=== PATIENT | female | born 1945 | race Caucasian/White ===

== ENCOUNTER 2020-08-02 15:11 | Outpatient (CLI) | payer MEDICARE, OTHER, SELFPAY ==
--- NOTE | ~2020-08-02 | MM_ITS ---
EXAMINATION: MM screening kari BI w silas HISTORY: Screening mammogram TECHNIQUE: Craniocaudal and mediolateral oblique 3-D tomosynthesis images were obtained and synthetic 2-D images were generated. CAD analysis was submitted and interpreted. COMPARISON: 07/28/2019, 07/26/2018 and 07/23/2017 bilateral digital screening mammogram examinations BREAST PARENCHYMAL COMPOSITION: The breasts are heterogeneously dense, which may obscure small masses . FINDINGS: Stable fibroglandular asymmetry. Numerous bilateral benign calcifications are again noted. There is no evidence of suspicious mass, calcification, or architectural distortion to suggest malign ancelmo in either breast. There has been no suspicious interval change. IMPRESSION: 1. No mammographic evidence of malignancy. 2. Recommend routine screening mammography in one year. BI-RADS Category 2: Benign finding(s). Reviewed, dictated and finalized at location A.
== END 2020-08-02 15:12 | disposition home or self-care (01) ==
LOC: ANHIMG 15:16
PROVIDERS: PCP Internal Medicine; Visit Provider Nurse Practitioner
DX: Z12.31 Encounter for screening mammogram for malignant neoplasm of breast (principal)
CPT/HCPCS: 77063; 77067

== ENCOUNTER 2021-08-05 14:35 | Outpatient (CLI) | payer MEDICARE, OTHER, SELFPAY ==
--- NOTE | ~2021-08-05 | MM_ITS ---
EXAMINATION: MM screening [facility] BI w silas HISTORY: Screening TECHNIQUE: Craniocaudal and mediolateral oblique 3-D tomosynthesis images were obtained and synthetic 2-D images were generated. CAD analysis was submitted and interpreted. COMPARISON: Comparison to multiple prior studies sequentially, with oldest reviewed study dated 07/17. BREAST PARENCHYMAL COMPOSITION: The breasts are extremely dense, which lowers the sensitivity of mamm ography. FINDINGS: There are stable bilateral asymmetries and left breast masses. There are benign bilateral b reast calcifications without significant change. There is no evidence of suspicious mass, calcificati on, or architectural distortion to suggest malignancy in either breast. There has been no suspicious interval change. IMPRESSION: 1. No mammographic evidence of malignancy. 2. Recommend routine screening mammography in one year. BI-RADS Category 2: Benign finding(s). Reviewed, dictated and finalized at location A.
== END 2021-08-05 14:36 | disposition home or self-care (01) ==
LOC: ANHIMG 14:38
PROVIDERS: PCP Internal Medicine; Visit Provider Nurse Practitioner
DX: Z12.31 Encounter for screening mammogram for malignant neoplasm of breast (principal)
CPT/HCPCS: 77063; 77067

== ENCOUNTER 2022-09-10 10:19 | Outpatient (CLI) | payer MEDICARE, OTHER, SELFPAY ==
--- NOTE | ~2022-09-10 | DEXA_ITS ---
Bone Density Report Name: MICHAEL FIELD Age: 76 Sex: Female Ethnicity: White Date of : 1945 Indication: postmenopausal; screening for osteoporosis; height loss; cancer; hysterectomy; Referring Provider: VILMA RUBI Study: Bone densitometry was performed. Exam Date: September 10, 2022 Accession number: [id number] Bone Density: Region BMD T-score Z-score Classification AP Spine(L1-L4) 1.183 1.2 3.8 Normal Femoral Neck (Left) 0.740 -1.0 1.2 Normal Total Hip (Left) 0.930 -0.1 1.8 Normal Femoral Neck (Right) 0.830 -0.2 2.0 Normal Total Hip (Right) 0.865 -0.6 1.3 Normal Total Hip Mean 0.898 -0.4 1.6 Normal World Health Organization criteria for BMD impression classify patients as: Normal (T-score at or above -1.0), Osteopenia (T-score between -1.0 and -2.5), or Osteoporosis (T-score at or below -2.5). 10-year Fracture Risk: FRAX not reported because: All T-scores for Spine Total, Hip Total, Femoral Neck at or above -1.0 Clinical Information Provided by Patient: Has used the following medications: Vitamin D Has the following medical conditions: Cancer, Hysterectomy Patient maximum height was 64 Menopause Age: 47 No regular weight bearing exercise Onset of menses at age 14 Number of children 2 Impression: The patient has normal bone mass. Discussion: BONE DENSITY IS ABOVE THE MINIMUM DESIRABLE LEVEL AT ALL SKELETAL SITES TESTED. This patient?s bone mineral density is above the minimum desirable level (T-score -1.0 or better) at all sites measured. The patient should follow a healthful lifestyle (good nutrition with adequate calcium and vitamin D, and appropriate weight-bearing exercise). Follow-Up: Consider repeating this study in 5 years or sooner if there is some new clinical indication. Reported by: DEREK on 09/10/2022 11:01:00 AM. Reviewed, dictated and finalized at location ASidney FOLEY
--- NOTE | ~2022-09-10 | MM_ITS ---
EXAMINATION: MM screening kari BI w silas HISTORY: Screening TECHNIQUE: Craniocaudal and mediolateral oblique 3-D tomosynthesis images were obtained and synthetic 2-D images were generated. CAD analysis was submitted and interpreted. COMPARISON: Comparison to multiple prior studies sequentially, with oldest reviewed study dated 07/20. BREAST PARENCHYMAL COMPOSITION: The breasts are extremely dense, which lowers the sensitivity of mamm ography FINDINGS: There are benign-appearing bilateral breast calcifications. Bilateral breast asymmetries ar e unchanged. There is no evidence of suspicious mass, calcification, or architectural distortion to s uggest malignancy in either breast. There has been no suspicious interval change. IMPRESSION: 1. No mammographic evidence of malignancy. 2. Recommend routine screening mammography in one year. BI-RADS Category 2: Benign finding(s). Reviewed, dictated and finalized at location A. 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
== END 2022-09-10 10:20 | disposition home or self-care (01) ==
PROVIDERS: PCP Internal Medicine; Visit Provider Obstetrics & Gynecology Gynecology
DX: Z12.31 Encounter for screening mammogram for malignant neoplasm of breast (principal); Z78.0 Asymptomatic menopausal state
CPT/HCPCS: 77063; 77067; 77080

== ENCOUNTER 2022-12-24 12:35 | Outpatient (CLI) | payer MEDICARE, OTHER, SELFPAY ==
--- NOTE | ~2022-12-24 | MMUS_ITS ---
EXAMINATION: MM diagnostic kari RT w silas, US breast RT complete HISTORY: Palpable lump, right breast, 1:00 TECHNIQUE: ML, MLO and CC full field 3-D tomosynthesis images of the right breast were performed and synthetic 2-D images were generated. CAD analysis was submitted and interpreted. High resolution comp lete right breast ultrasound examination including all 4 quadrants and subareolar area was performed. COMPARISON: 09/10/2022, 08/05/2021, 08/12/2020, 07/2019 bilateral screening mammogram examinations BREAST PARENCHYMAL COMPOSITION: The breasts are heterogeneously dense, which may obscure small masses . FINDINGS: MAMMOGRAPHIC FINDINGS: There is skin thickening of the right breast, which was also present on previous mammograms dating ba to 07/2019, likely secondary to previous radiotherapy. There are numerous calcifications scattered throughout the breast including arterial calcifications, calcified microhematomas and/or fat necrosis, probable calcified fibroadenomas and numerous benign se cretory calcifications. There is architectural distortion is radiating linear lines in association with some prominent amorph ous calcification in the upper inner right breast, the area of clinical complaint of breast lump. Dif ferential diagnosis for the architectural distortion would include postsurgical change and/or maligna ncy. The heterogeneously dense stroma may obscure masses. Complete right breast ultrasound examination was performed. ULTRASOUND: 12:00 near nipple: 3.6 x 5.5 x 4.1 mm irregular hypoechoic area with posterior shadowing; ultrasound- guided biopsy is recommended 1:00 7 cm from nipple at the scar an area of clinical complaint of lump: 2.9 x 13.2 x 7.8 mm irregula r hypoechoic area with evidence of some calcifications in posterior shadowing. Ultrasound-guided biop sy is recommended given the new complaint of breast lump at this location.. This likely corresponds t o the area of prominent calcification and architectural distortion reported on the mammogram in the u pper inner quadrant. 11:00 2 cm from nipple: Irregular 7.6 x 4.4 x 10.4 mm hypoechoic area with some posterior shadowing b ut no internal vascularity. Ultrasound-guided biopsy is recommended. IMPRESSION: 1. Several suspicious abnormalities are identified sonographically, at 12:00 near nipple, 1:00 7 cm f rom the nipple at area of clinical complaint of breast lump, near scar, and the area of mammographic probable postsurgical change and architectural distortion, and at 11:00 2 cm from nipple 2. Ultrasound-guided biopsy is recommended at 12:00 near nipple, 1:00 7 cm from nipple and at 11:00 2 cm from nipple BI-RADS category 4, suspicious findings. Reviewed, dictated and finalized at location A. 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 Several suspicious abnormalities are identified sonographically, at 12:00 ne ar nipple, 1:00 7 cm from the nipple at area of clinical complaint of breast delmer mp, near scar, and the area of mammographic probable postsurgical change and ar chitectural distortion, and at 11:00 2 cm from nipple 2. Ultrasound-guided biopsy is recommended at 12:00 near nipple, 1:00 7 cm from nipple and at 11:00 2 cm from nipple BI-RADS category 4, suspicious findings.
== END 2022-12-24 12:36 | disposition home or self-care (01) ==
PROVIDERS: PCP Internal Medicine; Visit Provider Nurse Practitioner
DX: N63.10 Unspecified lump in the right breast, unspecified quadrant (principal); R92.8 Other abnormal and inconclusive findings on diagnostic imaging of breast
CPT/HCPCS: 76641; 77061; 77065; G0279

== ENCOUNTER 2023-01-07 08:57 | Outpatient (CLI) | payer MEDICARE, OTHER, SELFPAY ==
--- NOTE | ~2023-01-07 | MMUS_ITS ---
EXAMINATION: US GUIDED NEEDLE BIOPSY DATE: 01/07/2023 13:19 CDT INDICATION: Right 11:00, 12:00 and 1:00 sonographic breast lesions TECHNIQUE AND FINDINGS: The risks and potential benefits of the procedure were discussed with the patient, and written inform ed consent was obtained. Timeout procedure was performed. After sterile preparation of the right willian st, 1% lidocaine was utilized for local anesthesia. A 14G spring-loaded biopsy gun needle was advanced to the edge of each of the lesions of interest, fr om a lateral approach for the 12:00 lesion, medial approach through the same incision for the 12:00 l esion, and lateral approach from separate incision site for the 11:00 lesion, utilizing sonographic g uidance. A total of three tissue core samples were obtained through each of the 3 lesions. An Inrad tissue marker clip was then placed at each of the biopsy sites. Hemostasis was achieved. A sterile b andage was applied. The patient tolerated procedure well and there was no evidence of immediate complication. The patien t was given verbal instructions prior to departing from the department. A two view mammogram was perf ormed to document tissue marker clip placement. The tissue samples were submitted to surgical patholo gy for histologic analysis. IMPRESSION: Successful ultrasound guided biopsy of 11:00, 12:00 and 1:00 right breast masses with biopsy marker p lacement. Please refer to pathology report for histologic analysis. Reviewed, dictated and finalized at Location A. Reviewed, dictated and finalized at location C. IMPRESSION: Successful ultrasound guided biopsy of 11:00, 12:00 and 1:00 right breast january s with biopsy marker placement. Please refer to pathology report for histologic analysis. IMPRESSION: Successful ultrasound guided biopsy of 11:00, 12:00 and 1:00 right breast january s with biopsy marker placement. Please refer to pathology report for histologic analysis. IMPRESSION: Successful ultrasound guided biopsy of 11:00, 12:00 and 1:00 right breast january s with biopsy marker placement. Please refer to pathology report for histologic analysis.
== END 2023-01-07 08:58 | disposition home or self-care (01) ==
PROVIDERS: PCP Internal Medicine; Visit Provider Surgery
DX: R92.8 Other abnormal and inconclusive findings on diagnostic imaging of breast (principal); N63.10 Unspecified lump in the right breast, unspecified quadrant; Z85.3 Personal history of malignant neoplasm of breast; N60.11 Diffuse cystic mastopathy of right breast
CPT/HCPCS: 19083; 19084; 88305; A4648

== ENCOUNTER 2023-07-13 12:52 | Emergency (ER) | payer MEDICARE, OTHER, SELFPAY ==
--- NOTE | ~2023-07-13 | CT_ITS ---
EXAMINATION: CT lumbar spine wo con DATE: 07/13/2023 19:23 INDICATION: Low back pain. Difficulty ambulating. TECHNIQUE: Computed tomography (CT) of the cervical spine was performed without intravenous contrast. Automated exposure control and iterative reconstruction technique were employed. Exam dose: 1115.45 mGy-cm total exam DLP. COMPARISON: None FINDINGS: No fracture or bone destruction is detected. There is mild degenerative disc disease and 3 mm retrolisthesis at L2-3. There is mild degenerative d isc disease at L3-4 and L4-5. There is moderately severe degenerative disc disease and mild posterior spurring at L5-S1. There is degenerative change at the apophyseal joints with associated grade 1 anterolisthesis at L4-5 and associated lateral recess encroachment/stenosis at L3-4, L4-5 and L5-S1. There is extensive abdominal aortic calcification but no evidence of abdominal aortic aneurysm. IMPRESSION: Lumbar spondylosis Reviewed, dictated and finalized at Location A. Reviewed, dictated and finalized at location A. IMPRESSION: Lumbar spondylosis
[2023-07-13 12:55] VITALS: BP 177/68; PULSE 72; RESP 16; TEMP 36.3; O2SAT 99
[2023-07-13] MEDS: ACETAMINOPHEN 325 MG TABLET 650 MG PO (19:29)
[2023-07-13] MEDS: HYDROcodone/acetaminophen (*CRX) 5-325 MG TABLET 1 TAB PO (19:29)
[2023-07-13 19:31] VITALS: BP 179/91; PULSE 88; RESP 20; O2SAT 99
--- NOTE | 2023-07-13 20:27 | ED.GENADULT ---
HPI - General Adult General Chief complaint: Back Pain/Injury Stated complaint: LOWER BACK PAIN,N/V Time Seen by Provider: 07/13/23 18:45 Source: patient Mode of arrival: ambulatory Limitations: no limitations History of Present Illness HPI narrative: This is a 77-year-old female with known low back problems who presents to the ED with chief complaint of low back pain occurring for the last several weeks but worse in the last couple of days. Reports she had difficulty with walking today due to pain. Pain is mainly in the central low back and radiates slightly into the right buttock. 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 States they seem to have minimal relief. She has history of herniated disc in the remote past and states these symptoms feel similar today. Denies saddle anesthesia, fevers, chills, numbness, weakness. Denies any injury or trauma. Related Data Home Medications Medication Instructions Recorded Confirmed amlodipine 10 mg tablet 10 mg PO DAILY 12/30/22 carvedilol 6.25 mg tablet 6.25 mg PO Q12H 12/30/22 cholecalciferol (vitamin D3) 25 25 mcg PO DAILY 12/30/22 mcg (1,000 unit) capsule (Vitamin D3) fenofibrate nanocrystallized 145 145 mg PO DAILY 12/30/22 mg tablet gabapentin 300 mg capsule 300 mg PO DAILY 12/30/22 glimepiride 1 mg tablet 1 mg PO QAM 12/30/22 metformin 1,000 mg tablet 1,000 mg PO DAILY 12/30/22 olmesartan 40 mg tablet 40 mg PO DAILY 12/30/22 simvastatin 20 mg tablet 20 mg PO DAILY 12/30/22 torsemide 20 mg tablet 20 mg PO QAM 12/30/22 Allergies Allergy/AdvReac Type Severity Reaction Status Date / Time No Known Allergies Allergy Mild Verified 07/13/23 18:46 Review of Systems Review of Systems: All systems as dictated in HPI [facility] Past Medical History Medical History Diabetes High cholesterol HTN (hypertension) Surgical History Surgical History History of lumpectomy of right breast 1991 Hx of cataract surgery 2020 Family History Family History Other Heart disease Social History Social History Smoking status: Never smoker Alcohol intake: never Exam Narrative: GENERAL: Well-appearing, well-nourished, and in no acute distress. HEAD: Normocephalic, atraumatic. EYES: PERRLA and EOMI. ENT: Nares clear, no rhinorrhea or epistaxis. Mucous membranes moist. Oropharynx without tonsillar hypertrophy exudate or other lesions. NECK: Supple. No adenopathy or masses. CHEST: No respiratory distress. Clear to auscultation. No wheezes rales or rhonchi HEART: Regular rate and rhythm. No murmur heard. Normal peripheral pulses. ABDOMEN: Soft, nontender, nondistended, normal active bowel sounds. MSK: Mild lumbar spinal and paraspinal tenderness. No tenderness throughout the cervical or thoracic spine. Straight leg raise bilaterally negative. SKIN: Warm, dry, no rash. NEURO: Alert and oriented x3. No focal deficits. No saddle anesthesia. 5 out of 5 strength and sensation. PSYCH: Normal mood and affect. 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
[2023-07-13 20:57] VITALS: BP 184/85; PULSE 82; RESP 18; O2SAT 97
== END 2023-07-13 20:58 | disposition home or self-care (01) ==
PROVIDERS: Emergency Provider Physician Assistant; PCP Internal Medicine
DX: M54.50 Low back pain, unspecified (principal); E11.9 Type 2 diabetes mellitus without complications; I10 Essential (primary) hypertension
CPT/HCPCS: 72131; 99284; A9270

== ENCOUNTER 2023-11-24 13:44 | Outpatient (CLI) | payer MEDICARE, OTHER, SELFPAY ==
--- NOTE | ~2023-11-24 | MM_ITS ---
EXAMINATION: MM screening kari BI w silas HISTORY: Screening TECHNIQUE: Craniocaudal and mediolateral oblique 3-D tomosynthesis images were obtained and synthetic 2-D images were generated. CAD analysis was submitted and interpreted. COMPARISON: Comparison to multiple prior studies sequentially, with oldest reviewed study dated 07/28. BREAST PARENCHYMAL COMPOSITION: Dense: The breasts are heterogeneously dense, which may obscure small masses FINDINGS: There is no evidence of suspicious mass, calcification, or architectural distortion to sugg est malignancy in either breast. There has been no suspicious interval change. IMPRESSION: 1. No mammographic evidence of malignancy. 2. Recommend routine screening mammography in one year. BI-RADS Category 1: Negative Reviewed, dictated and finalized at location A. 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
== END 2023-11-24 13:45 | disposition home or self-care (01) ==
LOC: ANHIMG 13:49
PROVIDERS: PCP Internal Medicine; Visit Provider Obstetrics & Gynecology Gynecology
DX: Z12.31 Encounter for screening mammogram for malignant neoplasm of breast (principal)
CPT/HCPCS: 77063; 77067

== ENCOUNTER 2024-02-02 12:40 | Outpatient (CLI) | payer MEDICARE, OTHER, SELFPAY ==
--- NOTE | ~2024-02-02 | XR_ITS ---
Lumbosacral Spine: AP and lateral views Clinical History: Pain Findings: The normal lordotic curve is maintained. No fracture seen. There is 5 mm anterolisthesis of L4 over L5. There are mild degenerative disc changes. There are moderate to advanced facet arthropat hy, especially at L4-L5 and L5-S1. The sacroiliac joints are normally outlined. Impression: [id number]-io-felqhllm degenerative spondylosis. 5 mm anterolisthesis of L4 over L5. No instability evident on flexion or extension. Reviewed, dictated and finalized at location M. Impression: Xuxj-xj-jqbluzly degenerative spondylosis. 5 mm anterolisthesis of L4 over L5. No instability evident on flexion or extens ion.
== END 2024-02-02 12:41 | disposition home or self-care (01) ==
PROVIDERS: PCP Internal Medicine; Visit Provider Physician Assistant
DX: M47.816 Spondylosis without myelopathy or radiculopathy, lumbar region (principal); M48.062 Spinal stenosis, lumbar region with neurogenic claudication
CPT/HCPCS: 72110

== ENCOUNTER 2024-08-03 10:20 | Outpatient (CLI) | payer MEDICARE, OTHER, SELFPAY ==
--- NOTE | 2024-08-03 10:28 | ECG_ITS ---
Test Date: 2024-08-03 10:37:25 Measurements Intervals [place] Rate: 67 P: 22 KS: 162 QRS: -20 QRSD: 83 T: 29 QT: 375 QTc: 397 Interpretive Statements SINUS RHYTHM NONSPECIFIC T-WAVE ABNORMALITY BORDERLINE ECG No previous ECG available for comparison Electronically Signed On 08-03-2024 16:06:57 CDT by Robby Vallecillo M.D.
[2024-08-03 10:58] LABS: INR 1.1; Partial Thromboplastin Time 26.4 Seconds (22.3-36.8); Prothrombin Time 14.4 Seconds (11.1-14.7)
[2024-08-03 11:00] LABS: Add Urine Microscopic? YES; Appearance Urine Cloudy (Clear); Bacteria Urine 4+ /hpf; Bilirubin Urine Negative (Negative); Blood Urine Non-Hemolyzed Trace (Negative); Color Urine Yellow (Yellow); Glucose Urine UA Negative (Negative); Ketones Urine Negative (Negative); Leukocyte Esterase Ur 3+ LEU/UL (Negative); Nitrate Urine Negative (Negative); Non Pathogenic Casts 0-2; Protein Urine 3+ mg/dL (Negative); Specific Grav Ur 1.014 (1.001-1.035); Squamous Epithelial Cell Urine None Seen /hpf (Few); Urobilinogen Urine 0.2 mg/dL (<2.0); WBC Urine >100 /hpf (0-3); pH Urine 6.5 (5.0-9.0)
== END 2024-08-03 10:21 | disposition home or self-care (01) ==
LOC: ANHSURGERY 10:27
PROVIDERS: PCP Internal Medicine; Visit Provider Neurological Surgery
DX: M48.062 Spinal stenosis, lumbar region with neurogenic claudication (principal); E78.5 Hyperlipidemia, unspecified; I10 Essential (primary) hypertension; Z01.818 Encounter for other preprocedural examination; R94.31 Abnormal electrocardiogram [ECG] [EKG]
CPT/HCPCS: 36415; 81001; 85610; 85730; 87077; 87086; 87186; 93005

== ENCOUNTER 2024-08-08 01:24 | Day surgery (SDC) | payer MEDICARE, OTHER, SELFPAY ==
[2024-08-01 11:18] VITALS: BMI 29.5
--- NOTE | 2024-08-01 11:46 | PC.NURSE ---
Report to the Outpatient Waiting Room, entrance under the green pavilion located off [facility], at time __09:30am_on date 08/08/24 . Planned Procedure Time: 11:30am___.? Time changes happen often and if your time is changed the preop area will call you the afternoon before. - You and your visitor will be asked to self-screen and do not enter if you have any COVID symptoms. Please call surgeon if you need to reschedule. - A mask is optional within the hospital at this time. Patients may have clear liquids (water, carbonated beverages, clear teas, apple juice) until 3 hours prior to surgery with a maximum of 20 ounces. - No food from midnight until time of surgery and no smoking (08:30am) Take only the following medications with a SIP of water on the morning of surgery: Amlodipine, Coreg, Gabapentin, Tylenol if needed DO NOT STOP ANY OF YOUR OTHER PRESCRIPTION MEDICATIONS PRIOR TO SURGERY EXCEPT THE FOLLOWING Medications to discontinue per physician Stop all vitamins and supplements 3 days prior per Anesthesia Date to take last dose___08/04/24 Please no make-up, nail czech, hairspray, perfume, deodorant, or body powder the day of surgery.? No jewelry (including any body piercings) or valuables the day of surgery, leave them at home.? Please take a shower or bath the night before, or the morning of, surgery with an antibacterial soap.? Wear comfortable, loose fitting clothing.? - Jewelry must be removed prior to entering the operating room.? Rings and piercings that are not removed may be cut off. - The hospital will not accept responsibility for valuables.? - Please leave all valuables, including medications, at home the day of surgery. If you are going home after surgery, a licensed ice cream truck driver must drive you home.? - NO public transportation without another adult if you receive anesthesia. - We recommend that an adult stay with you for 24 hours following discharge. - We also recommend that you do not drive, make important decision, drink alcoholic beverages, or take any drugs that were not prescribed by your health care provider for at least 24 hours after your discharge time. Follow any additional instructions given to you from your surgeon. Telephone instructions given to __patient and asked if any additional questions and then verbalized understanding. Patient advised to call surgeon office or pre surgery nurse liaison [phone] if any additional questions.
[2024-08-08] VITALS (14 sets, daily range): BP systolic 125–160; BP diastolic 51–78; PULSE 60–88; RESP 14–18; TEMP 35.6–37.1; O2SAT 94–100
--- NOTE | ~2024-08-08 | XR_ITS ---
EXAMINATION: XR fluoroscopy no charge DATE: 08/08/2024 15:18 INDICATION: Lumbar stenosis with neurogenic claudication. TECHNIQUE: A single intraoperative fluoroscopic view of the lumbar spine was obtained. I was not pres ent. Fluoroscopy exposure time was 2 seconds. COMPARISON: Lumbar spine radiographs 02/02/2024 FINDINGS: There is moderate lumbar spondylosis. Instruments overlie the posterior elements at L4. IMPRESSION: 1. Moderate lumbar spondylosis. Reviewed, dictated and finalized at location A.
[2024-08-08] MEDS: LACTATED RINGERS 1,000 ML 30 ML IV CONT ×2 (10:45→15:18)
[2024-08-08 10:54] LABS: Glucose Point of Care 128 mg/dl (65-105)
--- NOTE | 2024-08-08 12:23 | WPDANESEPPF ---
Anes - Initial Pre Proc Eval Procedure: Operation Date: 08/08/24 11:30 Proposed Procedures p L2-L5 Lumbar Laminectomy - Braden Patterson MD Date/Time: 08/08/24 12:23 Surgeon: Braden Patterson MD Pre Op Diagnosis: L2-5 st[place] Patient Data Age: 78 Gender: F Height: 1.63 m Weight: 78.2 kg Allergies Allergy/AdvReac Type Severity Reaction Status Date / Time No Known Allergies Allergy Mild Verified 08/08/24 12:24 Home Medications Medication Instructions Recorded Confirmed Type amlodipine 10 mg tablet 10 mg PO DAILY 12/30/22 08/01/24 History carvedilol 6.25 mg tablet 6.25 mg PO Q12H 12/30/22 08/01/24 History cholecalciferol (vitamin D3) 25 25 mcg PO DAILY 12/30/22 08/01/24 History mcg (1,000 unit) capsule (Vitamin D3) fenofibrate nanocrystallized 145 145 mg PO DAILY 12/30/22 08/01/24 History mg tablet gabapentin 300 mg capsule 300 mg PO DAILY 12/30/22 08/01/24 History olmesartan 40 mg tablet 40 mg PO DAILY 12/30/22 08/01/24 History simvastatin 20 mg tablet 20 mg PO DAILY 12/30/22 08/01/24 History glimepiride 1 mg tablet 1 mg PO BID 01/21/24 08/01/24 History insulin degludec 200 unit/mL (3 39 unit subcut DIRECTED 08/01/24 08/01/24 History mL) subcutaneous pen (Tresiba FlexTouch U-200 insulin) torsemide 20 mg tablet 20 mg PO DAILY 08/01/24 08/01/24 History Laboratory Tests 08/08/24 10:52 POC Capillary Glucose 128 H mg/dl (65-105) Patient hx anesthesia problems: none Family hx anesthesia problems: none Results Review: All pre-operative results and documents have been reviewed as part of the pre-operative evaluation. [facility] Past Medical History Medical History (Updated 08/08/24 @ 12:23 by Farhad Austin MD) Diabetes High cholesterol HTN (hypertension) Obesity Surgical History Surgical History History of lumpectomy of right breast 1992 Hx of cataract surgery 2020 Family History Family History Other Heart disease Social History Social History Smoking packs per day: 1 Smoking cigarettes per day: 20.0 Years smoked: 2 Smoking pack-years: 2.00 Smoking status: Former smoker Smoking end date: 10/25/1963 Alcohol intake: never Do You Feel Safe in your Home?: Yes Lack of Transportation: No Lack of Food: Never True Current Housing: I Have Housing Concerned About Future Housing: No Difficulty Paying Gas/Electric Bills: No Difficulty Paying for Meds: No Currently Unemployed: No Education: High School Diploma/GED Difficulty w/ Childcare or Family Care: No Living arrangements: with family Additional living arrangements comments: Spiritual care concerns: No Anes - Eval Final PreProcedure Day of Procedure 08/08/24 12:23 Patient weight: obese Heart: regular rate and rhythm Lungs: clear to auscultation Airway: Mallampati scale class III and special considerations poor opening and retrognathia Neurological: alert and oriented Last oral intake: >/= 8 hours ASA classification: III Emergent: no Anesthetic plan: proceed Anesthesia type and monitoring: general ETT and standard monitoring Results Review: All pre-operative results and documents have been reviewed as part of the pre-operative evaluation. Informed Consent: The patient's anesthetic plan and its attendant risks and benefits were discussed with the patient/family/POA. Questions were solicited and answers provided to the satisfaction of the patient/family/POA.
--- NOTE | 2024-08-08 12:57 | PM.IMHP ---
H&P: HPI History of Present Illness Date/Time: 08/08/24 12:57 Chief Complaint: Back and leg pain, neurogenic claudication Narrative: Meryl is here today for L2-5 laminectom she has. She has pain mainly in the middle of the right buttock. She seems to limp on that side. She apparently had back pain that radiated down the right lower extremity with numbness in her right foot at 1 point. She then had bilateral upper buttock discomfort that radiated in the right hip or buttock region. She is currently not complaining of any leg symptoms. It is starting to bother her more on the left. She has never had any for muscle group weakness or dermatomal numbness. She is not having any bowel or bladder difficulty. She has had 2 injections in her lumbar spine so far without permanent or even temporary benefit. She has also in the past complained of a tingling sensation in the anterior part of her right thigh. She states that she can walk but is limited, developing discomfort that is distracting after just a short distance. Overall, the symptoms are severe and limiting for her. Since we saw her last she has had an injection in the lumbar spine. This did not help her really even temporarily. She is here to discuss definitive management of her problem by surgery. Review of Systems Review of Systems: Const Details: Const All systems reviewed & are unremarkable except as noted in HPI and below Denies chills, Denies fever(s), Denies weakness, Denies weight gain and Denies weight loss Eyes Denies change in vision and Denies diplopia ENT Denies neck pain and Denies disequilibrium Card Denies chest pain and Denies dyspnea Resp Denies cough and Denies dyspnea GI Denies abdominal pain, Denies change in bowel habits, Denies fecal incontinence and Denies vomiting Denies hematuria, Denies oliguria, Denies difficulty urinating, Denies dysuria, Denies urinary frequency, Denies urinary hesitancy, Denies urinary incontinence and Denies urinary urgency Musc Reports as per HPI, Reports back pain, Denies muscle weakness, Denies neck pain, Reports numbness and Denies stiffness Skin/ Breast Reports system reviewed and no additional complaints, except as documented Neuro Reports as per HPI, Denies burning sensations, Denies focal weakness, Reports numbness, Denies Other visual disturbances, Reports radicular pain, Reports paresthesias, Denies disequilibrium and Denies weakness Psych Reports no additional complaints, Denies depression and Denies hopelessness Endo Reports no additional complaints and Denies polyuria Solis/ Lymph Reports no additional complaints Aller/ Immun Reports no additional complaints PMFSH Past Medical History Medical History (Updated 08/08/24 @ 12:23 by Farhad Austin MD) Diabetes High cholesterol HTN (hypertension) Obesity Surgical History Surgical History History of lumpectomy of right breast 1991 Hx of cataract surgery 2020 Family History Family History Other Heart disease Social History Social History Smoking packs per day: 1 Smoking cigarettes per day: 20.0 Years smoked: 2 Smoking pack-years: 2.00 Smoking status: Former smoker Smoking end date: 10/25/1963 Alcohol intake: never Do You Feel Safe in your Home?: Yes Lack of Transportation: No Lack of Food: Never True Current Housing: I Have Housing Concerned About Future Housing: No Difficulty Paying Gas/Electric Bills: No Difficulty Paying for Meds: No Currently Unemployed: No Education: High School Diploma/GED Difficulty w/ Childcare or Family Care: No Living arrangements: with family Additional living arrangements comments: Spiritual care concerns: No Meds Home Medications and Allergies Home Medications Medication Instructions Junaid
--- NOTE | 2024-08-08 12:59 | WPDHPUPDATE1 ---
History and Physical Update Update Date/Time: 08/08/24 12:59 History and Physical has been reviewed, including an updated exam of the patient. There are NO changes in the patient's condition. Risks, benefits, and alternatives have been discussed and questions answered. Patient agrees to proceed with procedure.
[2024-08-08] MEDS: ceFAZolin 2 GM/D5W 50 ML 2 GM/50 ML BAG IVPB ×2 (13:13→21:18)
[2024-08-08] MEDS: LIDO 1%/EPINEPHRINE 1:100,000 20 ML VIAL 10 ML INFILTRATE (13:47)
[2024-08-08 15:27] LABS: Glucose Point of Care 95 mg/dl (65-105)
[2024-08-08] MEDS: fentaNYL CITRATE INJ (*CRX) 100 MCG/2 ML VIAL 25 MCG IV PUSH ×3 (15:51→16:19)
--- NOTE | 2024-08-08 17:02 | ADMGEN ---
This patient, Meryl Hernandez, was admitted to 2 Medical Room 241-. Patient/family oriented to hospital policies and general routines including ID bracelet, bed and alarms, visiting hours, pain management, procedures, bathroom and other care routines, personal items, smoking policy, room service/diet, and visiting hours. Information on how to activate the Rapid Response Team has been discussed. Patient/Family are encouraged to report perceived risks to care and to ask questions if they do not understand what they are told or what they should do.
[2024-08-08] MEDS: MORPHINE SULFATE (*CRX) 2 MG/ML INJ IV PUSH ×2 (17:22→21:17)
[2024-08-08] MEDS: KCL 20 MEQ/D5/0.45% SOD CHL 1,000 ML 100 ML IV CONT (17:32)
[2024-08-08 20:41] LABS: Glucose Point of Care 191 mg/dl (65-105)
[2024-08-08] MEDS: DOCUSATE SODIUM 100 MG CAPSULE PO (21:17)
[2024-08-08] MEDS: INSULIN GLARGINE (*BKC) 100 UNITS/ML 39 UNITS SUB-Q (21:22)
[2024-08-08] MEDS: carvediloL 12.5 MG TABLET PO (23:14)
[2024-08-08] MEDS: GABAPENTIN 300 MG CAPSULE 600 MG PO (23:15)
[2024-08-08] MEDS: HYDROcodone/acetaminophen (*CRX) 10-325 MG TABLET 1 TAB PO (23:15)
[2024-08-09] VITALS (7 sets, daily range): BP systolic 130–147; BP diastolic 51–92; PULSE 62–70; RESP 16–18; TEMP 36–36.6; O2SAT 93–99
[2024-08-09] MEDS: HYDROcodone/acetaminophen (*CRX) 10-325 MG TABLET 1 TAB PO (05:14)
[2024-08-09] MEDS: KCL 20 MEQ/D5/0.45% SOD CHL 1,000 ML 100 ML IV CONT (05:14)
[2024-08-09] MEDS: GABAPENTIN 300 MG CAPSULE 600 MG PO ×2 (05:14→14:04)
--- NOTE | 2024-08-09 06:13 | PC.NURSE ---
Pt. ambulating in hallway with standby assist. Pt. tolerating ambulation well.
[2024-08-09] MEDS: carvediloL 12.5 MG TABLET PO (09:01)
[2024-08-09] MEDS: FENOFIBRATE NANOCRYSTALLIZED 145 MG TABLET PO (09:01)
[2024-08-09] MEDS: SIMVASTATIN 20 MG TABLET PO (09:01)
[2024-08-09] MEDS: DOCUSATE SODIUM 100 MG CAPSULE PO (09:02)
[2024-08-09] MEDS: GLIMEPIRIDE 2 MG TABLET PO ×2 (09:02→16:58)
[2024-08-09] MEDS: amLODIPine BESYLATE 10 MG TABLET PO (09:02)
[2024-08-09] MEDS: OLMESARTAN MEDOXOMIL 20 MG TABLET 40 MG PO (09:02)
[2024-08-09] MEDS: CHOLECALCIFEROL 1,000 UNITS TABLET 1000 UNITS PO (09:03)
[2024-08-09] MEDS: ceFAZolin 2 GM/D5W 50 ML 2 GM/50 ML BAG IVPB (09:04)
[2024-08-09] MEDS: ONDANSETRON INJ 4 MG/2 ML VIAL IV PUSH ×2 (10:26→14:35)
--- NOTE | 2024-08-19 13:03 | W.PM.PROC2 ---
Procedure Note - Detailed Date of Procedure 08/19/24 Pre-op Diagnosis L2-5 stensois Post-op Diagnosis Same Surgeon Braden Patterson MD Anesthesia General
--- NOTE | 2024-08-19 13:05 | P.OP_ITS ---
Procedure Note - Detailed Date of Procedure 08/08/24 Pre-op Diagnosis L2-5 stensois Post-op Diagnosis Same Procedure Performed L2-5 laminectomy Surgeon Braden Patterson MD Anesthesia General Description of Procedure the patient was brought to the operating room in the supine position, was sedated, intubated placed under general anesthesia in routine fashion. She was then turned into the prone position on a Romero frame. The operation on her back was examined, marked for incision, prepped and draped in routine sterile fashion. Incision was marked over the L2-5 spinous processes in the midline. This area was injected with 0.5% lidocaine with [id number] epinephrine. Intravenous antibiotics given prior to incision. Incision was made with a 10 blade scalpel down to the lumbodorsal fascia. A subperiosteal dissection of the muscle soft tissue away from the spinous process and lamina at L2-5 was performed with a subperiosteal elevator and Bovie cautery. A verifying x-rays obtained to verify level of operation. Spinous processes were removed at L2-5. A Midas Ifeanyi drill with an acorn bit was used to thin the lamina in the midline the soft contents of the canal encountered. Kerrison punches and curved curettes were used to define a plane with the dura and remove bone ligament in the midline exposing the dura below. Kerrison punches and curved curettes were again used to define a plane with the dura in the lateral recess and lift the yellow ligament. The Kerrison punches were used to remove overgrown yellow ligament and bone in the lateral recess until a dental instrument could be placed in the lateral epidural space to confirm lack of compression. This was done from superior to inferior. Each pedicle was identified. The wound was then copiously irrigated with bacitracin irrigation all bleeding stopped with bipolar and Bovie cautery and Gelfoam thrombin powder. A medium H emovac drain was left in the subfascial position and buried out to the inferior right of the incision. The wound was then closed in layered fashion with 2-0 Vicryl interrupted sutures in the lumbodorsal fascia and Danny's layer. 3-0 Vicryl buried interrupted sutures were placed in the dermis and the skin was closed with a running 4-0 Monocryl subcuticular stitch and dressed with Dermabond. The patient was allowed to wake up in the operating room and was taken to the recovery room in stable condition. There were no immediate complications of this operation. All counts were reported correct at the end of the case. Blood loss was 150 cc. The patient was neurologically at his baseline postoperatively. CPT codes: 61859, 82308 x 3 IV Fluids 150 Drains Yes Complications None Condition Stable Disposition PACU [facility] Billing Surgery - Charge Forward: Surgery Billing
== END 2024-08-09 18:20 | disposition home or self-care (01) ==
LOC: ANHSURGERY 09:02 → ANH2MED 16:30
PROVIDERS: PCP Internal Medicine; Visit Provider Neurological Surgery
PROC: (CPT 63005; principal; 2024-08-08 11:30)
DX: M48.062 Spinal stenosis, lumbar region with neurogenic claudication (principal); I10 Essential (primary) hypertension; E11.9 Type 2 diabetes mellitus without complications; E78.00 Pure hypercholesterolemia, unspecified; E66.9 Obesity, unspecified; Z68.30 Body mass index [BMI] 30.0-30.9, adult; Z79.84 Long term (current) use of oral hypoglycemic drugs; Z79.4 Long term (current) use of insulin; Z98.890 Other specified postprocedural states; Z87.891 Personal history of nicotine dependence; Z82.49 Family history of ischemic heart disease and other diseases of the circulatory system
CPT/HCPCS: 63047; 63048 ×2; 82948; 97161; 97165; 99199; A9270; J0690; J1100; J1815; J2003; J2004; J2270; J2405; J2704; J3010; J3480; J7120

== ENCOUNTER 2025-03-09 13:30 | Outpatient (CLI) | payer MEDICARE, OTHER, SELFPAY ==
--- NOTE | ~2025-03-09 | MM_ITS ---
EXAMINATION: MM screening kari BI w silas HISTORY: Screening TECHNIQUE: Craniocaudal and mediolateral oblique 3-D tomosynthesis images were obtained and synthetic 2-D images were generated. CAD analysis was submitted and interpreted. COMPARISON: Comparison to multiple prior studies sequentially, with oldest reviewed study dated 06/2020. BREAST PARENCHYMAL COMPOSITION: Dense: The breasts are heterogeneously dense, which may obscure small masses FINDINGS: The right breast is stable without evidence for malignancy. Mass in the lower outer quadran t of the left breast, middle-posterior third is not significantly changed from prior studies. There i s no evidence of suspicious mass, calcification, or architectural distortion to suggest malignancy in either breast. There has been no suspicious interval change. IMPRESSION: 1. No mammographic evidence of malignancy. 2. Recommend routine screening mammography in one year. BI-RADS Category 2: Benign finding(s). Reviewed, dictated and finalized at location A.
--- OUTSIDE RECORDS SUMMARY | 2025-03-09 13:38 | XMS_ITS | Data Portability ---
Author Organization [place] - [facility], Main Office Address [address] [place] [address] Care Team Providers Care Actuary Clerk Name Role Phone KELSEY KUMAR Primary Care Provider KELSEY KUMAR Referring Provider [phone] Assessment Encounter Date Assessment Date Assessment LastModified by Organization Details LastModified Time 08/03/2023 08/03/2023 The patient has low back pain with pain in the right sacroiliac region lumbar spondylosis and degenerative disc disease of lumbar spine. She had an episode about 3 weeks ago was treated at the emergency room is doing much better. She continues to do her home physical therapy exercises as instructed by Physical therapy she thinks this is helping. We did talk about continue with oral anti-inflammator ies she is going to use these as needed work on stretching heat and she also uses Biofreeze on her back. We will see her back as needed. Certainly if her symptoms worsen or change she is instructed to call we could do an MRI scan at any time. She states many years ago she had epidural steroid injections in her lumbar spine and these worked very well for her we could consider these 2 if necessary. She voiced understanding and agrees above plan she will call for any further problems difficulties or questions. [email or web address] Not available 08/03/2023 10:59:39 Plan of Treatment Reminders Order Date Submit Date Provider Last Modified By Organization Details Last Modified Time Details Appointments Any 30 2024 01:00P QUIN Powers Not available Not available Not available Lab vitamin D, 25-hydrox y, total, serum 2023 024 [email or web address] [facility], [address] [place], [address], 06/29/2024 08:24:21 vitamin D, 25-hydrox y, total, serum [email or web address], [address] [place], [address], 06/29/2024 08:24:33 glycohemo globin, total, blood 2023 024 [facility], [address] [place], [address], 06/27/2024 13:29:32 CMP, serum or plasma 2023 024 [facility], [address] [place], [address], 06/27/2024 12:01:40 microalbu min, urine 2023 024 [facility], [address] [place], [address], 06/27/2024 12:38:21 CBC w/ auto diff 2023 024 [facility], [address] [place], [address], 06/27/2024 12:07:22 lipid panel, serum 2023 024 [facility], [address] [place], [address], 06/27/2024 12:01:45 CMP, serum or plasma 2022 023 [facility], [address] [place], [address], 09/27/2023 20:36:53 glycohemo globin, total, blood 2022 023 [facility], [address] [place], [address], 09/27/2023 21:16:36 Referral None recorded. Procedures None recorded. Surgeries None recorded. Imaging None recorded. Medication Orders Tresiba FlexTouch U-200 insulin 200 unit/mL (3 mL) subcutane ous pen 2024 025 [id number], [address], [place], [address], 12/14/2024 15:26:57 Tresiba FlexTouch U-200 insulin 200 unit/mL (3 mL) subcutane ous pen 2023 024 [id number], [address], [place], [address], 02/10/2024 16:16:12 glimepiri de 2 mg tablet 2023 024 [id number], [address] [place], [address], 02/10/2024 16:16:12 metformin 1,000 mg tablet 2023 024 [email or web address] [id number], [address] [place], [address], 11/21/2024 10:42:06 amlodipin e 10 mg tablet [address] #[id number], [address] [place], [address], 02/10/2024 16:16:12 carvedilo l 12.5 mg tablet 2023 024 [facility] #[id number], [address] [place], [address], 02/10/2024 16:16:12 olmesarta n 40 mg tablet 2023 024 [facility] #[id number], [address] [place], [address], 02/10/2024 16:16:12 torsemide 20 mg tablet 2023 024 [id number] [facility] #[id number], [address] , [place], [address], 03/06/2025 03:20:25 fenofibra te nanocryst allized 145 mg tablet [address] #[id number], [address] , [place], [address], 02/10/2024 16:16:12 simvastat in 20 mg tablet [address] #[id number], [address] , [place], [address], 02/10/2024 16:16:12 gabapenti n 300 mg capsule [address] #[id number], [address] , [place], [address], 02/10/2024 16:16:12 Patient TargetsNo targets recorded. Patient InstructionsNo instructions recorded. Reason for Referral None Reported. Results Created Date Observation Date Name Description Value Unit Range Abnormal Flag Note LastModifiedBy Organization Detail LastModifiedTime 09/27/2009/27/2023 COMPR EHENS DOMENIC METAB OLIC PANEL sodium 138 mmol/ L 137-14 5 Not Available [facility] (Lab) [address] [place], [address], 09/27/2023 20:36:53 09/27/20 23 09/27/2023 COMPR EHENS DOMENIC METAB OLIC PANEL potassium 4.2 mmol/ L 3.5-5. 1 Not Available [facility] (Lab) [address] [place], [address], 09/27/2023 20:36:53 09/27/20 23 09/27/2023 COMPR EHENS DOMENIC METAB OLIC PANEL chloride 105 mmol/ L 98-107 Not Available [facility] (Lab) [address] [place], [address], 09/27/2023 20:36:53 09/27/20 23 09/27/2023 COMPR EHENS DOMENIC METAB OLIC PANEL carbon dioxide 24 mmol/ L 22-30 Not Available [facility] (Lab) [address] [place], [address], 09/27/2023 20:36:53 09/27/20 23 09/27/2023 COMPR EHENS DOMENIC METAB OLIC PANEL anion gap 13.2 mmol/ L 14-22 low Not Available [facility] (Lab) [address] [place], [address], 09/27/2023 20:36:53 09/27/20 23 09/27/2023 COMPR EHENS DOMENIC METAB OLIC PANEL glucose 159 mg/dL 70-99 high Not Available [facility] (Lab) [address] [place], [address], 09/27/2023 20:36:53 09/27/20 23 09/27/2023 COMPR EHENS DOMENIC METAB OLIC PANEL BUN 20 mg/dL 8-19 high Not Available [facility] (Lab) [address] [place], [address], 09/27/2023 20:36:53 09/27/20 23 09/27/2023 COMPR EHENS DOMENIC METAB OLIC PANEL creatinine 1.01 mg/dL 0.66-1 .25 Not Available [facility] (Lab) [address] [place], [address], 09/27/2023 20:36:53 09/27/20 23 09/27/2023 COMPR EHENS DOMENIC METAB OLIC PANEL GFR 53 Refer ence Range : [place] ge GFR Healt hy Adult : >60 mL/mi n/1.7 3 m2 Chron ic Kidne y Disea se: 15-60 mL/mi n/1.7 3 m2 Kidne y Failu re: <15/m L/min /1.73 m2 www.n iddk. nih.g ov The MDRD study equat ion has not been valid ated in child glendy <18 years of age; pregn ant women ; the elder ly >85 years of age; or in some racia l or ethni c subgr oups, such as Hispa nics. Outsi de the valid ated george eters , estim ated GFR is less accur ate, requi ring clini irene judgm ent on a case- by-ca se basis . Clini irene inter preta tion for other races and ages must be made by the clini latoya. The MDRD study equat ion has not been valid ated for the evalu ation of serum creat inine relat ed to nutri karin l statu s or medic ation usage . For perso ns <18 years of age, a pedia tric GFR calcu lator is avail able on the [facility] websi te: https :[email or web address] [email or web address].haley [email or web address].o rg/pr ofess ional s/kdo qi/gf r_cal culat or Not Available [facility] (Lab) [address] [place], [address], 09/27/2023 20:36:53 09/27/20 23 09/27/2023 COMPR EHENS DOMENIC METAB OLIC PANEL alkaline phosphatase 41 U/L 38-126 Not Available [facility] (Lab) [address] [place], [address], 09/27/2023 20:36:53 09/27/20 23 09/27/2023 COMPR EHENS DOMENIC METAB OLIC PANEL alanine aminotransfe rase 15 U/L 0-35 Not Available [facility] (Lab) [address] [place], [address], 09/27/2023 20:36:53 09/27/20 23 09/27/2023 COMPR EHENS DOMENIC METAB OLIC PANEL aspartate aminotransfe rase 25 U/L 15-37 Not Available [facility] (Lab) [address] [place], [address], 09/27/2023 20:36:53 09/27/20 23 09/27/2023 COMPR EHENS DOMENIC METAB OLIC PANEL bilirubin, total 0.40 mg/dL 0.20-1 .30 Not Available [facility] (Lab) [address] [place], [address], 09/27/2023 20:36:53 09/27/20 23 09/27/2023 COMPR EHENS DOMENIC METAB OLIC PANEL calcium 9.9 mg/dL 8.4-10 .2 Not Available [facility] (Lab) [address] [place], [address], 09/27/2023 20:36:53 09/27/20 23 09/27/2023 COMPR EHENS DOMENIC METAB OLIC PANEL total protein 7.2 g/dL 6.3-8. 2 Not Available [facility] (Lab) [address] [place], [address], 09/27/2023 20:36:53 09/27/20 23 09/27/2023 COMPR EHENS DOMENIC METAB OLIC PANEL albumin 3.9 g/dL 3.0-4. 4 Not Available [facility] (Lab) [address] [place], [address], 09/27/2023 20:36:53 09/27/20 23 09/27/2023 COMPR EHENS DOMENIC METAB OLIC PANEL globulin 3.3 g/dL 2.6-4. 2 Not Available [facility] (Lab) [address] [place], [address], 09/27/2023 20:36:53 09/27/20 23 09/27/2023 COMPR EHENS DOMENIC METAB OLIC PANEL A/G ratio 1.2 ratio 1.0-2. 0 Not Available [facility] (Lab) [address] [place], [address], 09/27/2023 20:36:53 09/27/20 23 09/27/2023 HEMOG LOBIN A1C HA1C 6.4 % 4.0-6. 0 high Diabe girish Dhruv Foleyte chelsie: <5.7% Consi stent with absen ce of diabe girish 5.7-6 .4% Consi stent with incre ased risk for diabe girish (pred iabet es) >OR=6 .5% Consi stent with diabe girish REFER ENCE: Diabe girish Care 2016, 39(Horvath ppl.1 ):s13 -s22 Not Available [facility] (Lab) [address] [place], [address], 09/27/2023 21:16:36 06/27/20 24 06/27/2024 COMPR EHENS DOMENIC METAB OLIC PANEL sodium 138 mmol/ L 137-14 5 Not Available [facility] (Lab) [address] [place], [address], 06/27/2024 12:01:40 06/27/20 24 06/27/2024 COMPR EHENS DOMENIC METAB OLIC PANEL potassium 4.5 mmol/ L 3.5-5. 1 Not Available [facility] (Lab) [address] [place], [address], 06/27/2024 12:01:40 06/27/20 24 06/27/2024 COMPR EHENS DOMENIC METAB OLIC PANEL chloride 109 mmol/ L 98-107 high Not Available [facility] (Lab) [address] [place], [address], 06/27/2024 12:01:40 06/27/20 24 06/27/2024 COMPR EHENS DOMENIC METAB OLIC PANEL carbon dioxide 25 mmol/ L 22-30 Not Available [facility] (Lab) [address] [place], [address], 06/27/2024 12:01:40 06/27/20 24 06/27/2024 COMPR EHENS DOMENIC METAB OLIC PANEL anion gap 8.5 mmol/ L 14-22 low Not Available [facility] (Lab) [address] [place], [address], 06/27/2024 12:01:40 06/27/20 24 06/27/2024 COMPR EHENS DOMENIC METAB OLIC PANEL glucose 110 mg/dL 70-99 high Not Available [facility] (Lab) [address] [place], [address], 06/27/2024 12:01:40 06/27/20 24 06/27/2024 COMPR EHENS DOMENIC METAB OLIC PANEL BUN 29 mg/dL 8-19 high Not Available [facility] (Lab) [address] [place], [address], 06/27/2024 12:01:40 06/27/20 24 06/27/2024 COMPR EHENS DOMENIC METAB OLIC PANEL creatinine 1.44 mg/dL 0.66-1 .25 high Not Available [facility] (Lab) [address] [place], [address], 06/27/2024 12:01:40 06/27/20 24 06/27/2024 COMPR EHENS DOMENIC METAB OLIC PANEL GFR 35 Refer ence Range : [place] ge GFR Healt hy Adult : >60 mL/mi n/1.7 3 m2 Chron ic Kidne y Disea se: 15-60 mL/mi n/1.7 3 m2 Kidne y Failu re: <15/m L/min /1.73 m2 www.n iddk. nih.g ov The MDRD study equat ion has not been valid ated in child glendy <18 years of age; pregn ant women ; the elder ly >85 years of age; or in some racia l or ethni c subgr oups, such as Hispa nics. Outsi de the valid ated george eters , estim ated GFR is less accur ate, requi ring clini irene judgm ent on a case- by-ca se basis . Clini irene inter preta tion for other races and ages must be made by the clini latoya. The MDRD study equat ion has not been valid ated for the evalu ation of serum creat inine relat ed to nutri karin l statu s or medic ation usage . For perso ns <18 years of age, a pedia tric GFR calcu lator is avail able on the F websi te: https ://stefania w.haley guevaray.o rg/pr ofess ional s/kdo qi/gf r_cal culat or Not Available [facility] (Lab) [address] [place], [address], 06/27/2024 12:01:40 06/27/20 24 06/27/2024 COMPR EHENS DOMENIC METAB OLIC PANEL alkaline phosphatase 54 U/L 38-126 Not Available [facility] (Lab) [address] [place], [address], 06/27/2024 12:01:40 06/27/20 24 06/27/2024 COMPR EHENS DOMENIC METAB OLIC PANEL alanine aminotransfe rase 18 U/L 0-35 Not Available [facility] (Lab) [address] [place], [address], 06/27/2024 12:01:40 06/27/20 24 06/27/2024 COMPR EHENS DOMENIC METAB OLIC PANEL aspartate aminotransfe rase 28 U/L 15-37 Not Available [facility] (Lab) [address] [place], [address], 06/27/2024 12:01:40 06/27/20 24 06/27/2024 COMPR EHENS DOMENIC METAB OLIC PANEL bilirubin, total 0.30 mg/dL 0.20-1 .30 Not Available [facility] (Lab) [address] [place], [address], 06/27/2024 12:01:40 06/27/20 24 06/27/2024 COMPR EHENS DOMENIC METAB OLIC PANEL calcium 9.8 mg/dL 8.4-10 .2 Not Available [facility] (Lab) [address] [place], [address], 06/27/2024 12:01:40 06/27/20 24 06/27/2024 COMPR EHENS DOMENIC METAB OLIC PANEL total protein 7.0 g/dL 6.3-8. 2 Not Available [facility] (Lab) [address] [place], [address], 06/27/2024 12:01:40 06/27/20 24 06/27/2024 COMPR EHENS DOMENIC METAB OLIC PANEL albumin 4.0 g/dL 3.0-4. 4 Not Available [facility] (Lab) [address] [place], [address], 06/27/2024 12:01:40 06/27/20 24 06/27/2024 COMPR EHENS DOMENIC METAB OLIC PANEL globulin 3.0 g/dL 2.6-4. 2 Not Available [facility] (Lab) [address] [place], [address], 06/27/2024 12:01:40 06/27/20 24 06/27/2024 COMPR EHENS DOMENIC METAB OLIC PANEL A/G ratio 1.3 ratio 1.0-2. 0 Not Available [facility] (Lab) [address] [place], [address], 06/27/2024 12:01:40 06/27/20 24 06/27/2024 LIPID PANEL cholesterol 149 mg/dL 140-19 9 NIH HILDA NSUS RECOM MENDA TION FOR BRANDON STERO L: ADULT CHILD LOW RISK: <200 <170 BORDE RLINE : <200- 239 ----- HIGH RISK: >240 >200 Not Available [facility] (Lab) [address] [place], [address], 06/27/2024 12:01:45 06/27/20 24 06/27/2024 LIPID PANEL triglyceride s 225 mg/dL 0-150 high NIH HILDA NSUS REPOR T RECOM MENDA TION FOR TRIGL YCERI JOHN: ADULT CHILD LOW RISK: <150 ----- BODER LINE: 150-1 99 ----- HIGH RISK: >200 ----- Not Available [facility] (Lab) [address] [place], [address], 06/27/2024 12:01:45 06/27/20 24 06/27/2024 LIPID PANEL HDL cholesterol 42 mg/dL 40- Not Available [facility] (Lab) [address] [place], [address], 06/27/2024 12:01:45 06/27/20 24 06/27/2024 LIPID PANEL LDL cholesterol, calculated 62 mg/dL 0-130 NIH HILDA NSUS REPOR T RECOM MENDA TIONS FOR LDL: ADULT CHILD LOW RISK <130 <110 (OPTI MAL LDL) <100 ----- BORDE RLINE : 130-1 59 ----- HIGH RISK: >160 >130 A TRIGL YCERI DE RESUL T >400 INVAL IDATE S THE CALCU LATIO N FOR LDL FRACT IONAT ION - THE LDL RESUL T WILL NOT BE REPOR MARIBEL. Not Available [facility] (Lab) [address] [place], [address], 06/27/2024 12:01:45 06/27/20 24 06/27/2024 CBC/C OMPLE TE BLD COUNT W/DIF F white blood cells 7.5 x10'3 /uL 4.2-10 .8 Not Available [facility] (Lab) [address] [place], [address], 06/27/2024 12:07:22 06/27/20 24 06/27/2024 CBC/C OMPLE TE BLD COUNT W/DIF F red blood cells 4.03 x10'6 /uL 3.80-5 .20 Not Available [facility] (Lab) [address] [place], [address], 06/27/2024 12:07:22 06/27/20 24 06/27/2024 CBC/C OMPLE TE BLD COUNT W/DIF F hemoglobin 12.0 g/dL 12.0-1 5.6 Not Available [facility] (Lab) [address] [place], [address], 06/27/2024 12:07:22 06/27/20 24 06/27/2024 CBC/C OMPLE TE BLD COUNT W/DIF F hematocrit 36.3 % 35.7-4 5.7 Not Available [facility] (Lab) [address] [place], [address], 06/27/2024 12:07:22 06/27/20 24 06/27/2024 CBC/C OMPLE TE BLD COUNT W/DIF F mean red cell volume 90.1 fL 82.0-9 9.0 Not Available [facility] (Lab) [address] [place], [address], 06/27/2024 12:07:22 06/27/20 24 06/27/2024 CBC/C OMPLE TE BLD COUNT W/DIF F mean red cell hemoglobin 29.8 pg 27.0-3 3.0 Not Available [facility] (Lab) [address] [place], [address], 06/27/2024 12:07:22 06/27/20 24 06/27/2024 CBC/C OMPLE TE BLD COUNT W/DIF F mean RBC HGB concentratio n 33.1 g/dL 31.0-3 6.0 Not Available [facility] (Lab) [address] [place], [address], 06/27/2024 12:07:22 06/27/20 24 06/27/2024 CBC/C OMPLE TE BLD COUNT W/DIF F red cell distribution width 13.1 % 11.8-1 5.5 Not Available [facility] (Lab) [address] [place], [address], 06/27/2024 12:07:22 06/27/20 24 06/27/2024 CBC/C OMPLE TE BLD COUNT W/DIF F platelets 420 x10'3 /uL 150-40 0 high Not Available [facility] (Lab) [address] [place], [address], 06/27/2024 12:07:22 06/27/20 24 06/27/2024 CBC/C OMPLE TE BLD COUNT W/DIF F mean platelet volume 10.7 fL 9.0-12 .4 Not Available [facility] (Lab) [address] [place], [address], 06/27/2024 12:07:22 06/27/20 24 06/27/2024 CBC/C OMPLE TE BLD COUNT W/DIF F neutrophils 52.2 % 39.0-7 2.0 Not Available [facility] (Lab) [address] [place], [address], 06/27/2024 12:07:22 06/27/20 24 06/27/2024 CBC/C OMPLE TE BLD COUNT W/DIF F lymphocytes 32.1 % 16.0-4 7.0 Not Available [facility] (Lab) [address] [place], [address], 06/27/2024 12:07:22 06/27/20 24 06/27/2024 CBC/C OMPLE TE BLD COUNT W/DIF F monocytes 9.5 % 5.0-12 .0 Not Available [facility] (Lab) [address] [place], [address], 06/27/2024 12:07:22 06/27/20 24 06/27/2024 CBC/C OMPLE TE BLD COUNT W/DIF F eosinophils 5.2 % 1.0-7. 0 Not Available [facility] (Lab) [address] [place], [address], 06/27/2024 12:07:22 06/27/20 24 06/27/2024 CBC/C OMPLE TE BLD COUNT W/DIF F basophils 0.5 % 0.0-2. 0 Not Available [facility] (Lab) [address] [place], [address], 06/27/2024 12:07:22 06/27/20 24 06/27/2024 CBC/C OMPLE TE BLD COUNT W/DIF F immature granulocytes 0.5 % 0.00-0 .50 Not Available [facility] (Lab) [address] [place], [address], 06/27/2024 12:07:22 06/27/20 24 06/27/2024 CBC/C OMPLE TE BLD COUNT W/DIF F neutrophils, absolute count 3.91 x10'3 /uL 1.5-8. 0 Not Available [facility] (Lab) [address] [place], [address], 06/27/2024 12:07:22 06/27/20 24 06/27/2024 CBC/C OMPLE TE BLD COUNT W/DIF F lymphocytes, absolute count 2.41 x10'3 /uL 1.07-3 .43 Not Available [facility] (Lab) [address] [place], [address], 06/27/2024 12:07:22 06/27/20 24 06/27/2024 CBC/C OMPLE TE BLD COUNT W/DIF F monocytes, absolute count 0.71 x10'3 /uL 0.29-0 .99 Not Available [facility] (Lab) [address] [place], [address], 06/27/2024 12:07:22 06/27/20 24 06/27/2024 CBC/C OMPLE TE BLD COUNT W/DIF F eosinophils, absolute count 0.39 x10'3 /uL 0.02-0 .53 Not Available [facility] (Lab) [address] [place], [address], 06/27/2024 12:07:22 06/27/20 24 06/27/2024 CBC/C OMPLE TE BLD COUNT W/DIF F basophils, absolute count 0.04 x10'3 /uL 0.01-0 .08 Not Available [facility] (Lab) [address] [place], [address], 06/27/2024 12:07:22 06/27/20 24 06/27/2024 CBC/C OMPLE TE BLD COUNT W/DIF F immature granulocytes ,absolute 0.04 x10'3 /uL 0.00-0 .05 Not Available [facility] (Lab) [address] [place], [address], 06/27/2024 12:07:22 06/27/20 24 06/27/2024 CBC/C OMPLE TE BLD COUNT W/DIF F nucleated red blood cells 0.0 % -0 Not Available [facility] (Lab) [address] [place], [address], 06/27/2024 12:07:22 06/27/20 24 06/27/2024 CBC/C OMPLE TE BLD COUNT W/DIF F NRBC# 0.00 x10'3 /uL Not Available [facility] (Lab) [address] [place], [address], 06/27/2024 12:07:22 06/27/20 24 06/27/2024 VITAM IN D 25-HY DROXY [id number] 27.3 NG/mL 30-100 low Vitam in D Statu s: Defic ient: <20 ng/mL Insuf ficie nt: 20-29 ng/mL Suffi cient : 30-10 0 ng/mL Not Available [facility] (Lab) [address] [place], [address], 06/27/2024 12:35:39 06/27/20 24 06/27/2024 MICRO ALBUM IN RANDO M URINE microalbumin , urine 989.7 mg/L 0.0-16 .6 high Not Available [facility] (Lab) [address] [place], [address], 06/27/2024 12:38:21 06/27/20 24 06/27/2024 HEMOG LOBIN A1C HA1C 6.5 % 4.0-6. 0 high Diabe girish Scree clive Crite chelsie: <5.7% Consi stent with absen ce of diabe girish 5.7-6 .4% Consi stent with incre ased risk for diabe girish (pred iabet es) >OR=6 .5% Consi stent with diabe girish REFER ENCE: Diabe girish Care 39(Horvath ppl.1 ):s13 -s22 Not Available [facility] (Lab) [address] [place], [address], 06/27/2024 13:29:32 11/20/19 25 11/20/2024 HEMOG LOBIN A1C HA1C 7.6 % 4.0-6. 0 high Diabe girish Scree clive Crite chelsie: <5.7% Consi stent with absen ce of diabe girish 5.7-6 .4% Consi stent with incre ased risk for diabe girish (pred iabet es) >OR=6 .5% Consi stent with diabe girish REFER ENCE: Diabe girish Care 39(Horvath ppl.1 ):s13 -s22 Not Available [facility] (Lab) [address] [place], [address], 11/20/2024 12:25:22 11/20/19 25 11/20/2024 CBC/C OMPLE TE BLD COUNT W/DIF F white blood cells 7.3 x10'3 /uL 4.2-10 .8 Not Available [facility] (Lab) [address] [place], [address], 11/20/2024 12:26:27 11/20/19 25 11/20/2024 CBC/C OMPLE TE BLD COUNT W/DIF F red blood cells 4.42 x10'6 /uL 3.80-5 .20 Not Available [facility] (Lab) [address] [place], [address], 11/20/2024 12:26:27 11/20/19 25 11/20/2024 CBC/C OMPLE TE BLD COUNT W/DIF F hemoglobin 12.5 g/dL 12.0-1 5.6 Not Available [facility] (Lab) [address] [place], [address], 11/20/2024 12:26:27 11/20/19 25 11/20/2024 CBC/C OMPLE TE BLD COUNT W/DIF F hematocrit 37.9 % 35.7-4 5.7 Not Available [facility] (Lab) [address] [place], [address], 11/20/2024 12:26:27 11/20/19 25 11/20/2024 CBC/C OMPLE TE BLD COUNT W/DIF F mean red cell volume 85.7 fL 82.0-9 9.0 Not Available [facility] (Lab) [address] [place], [address], 11/20/2024 12:26:27 11/20/19 25 11/20/2024 CBC/C OMPLE TE BLD COUNT W/DIF F mean red cell hemoglobin 28.3 pg 27.0-3 3.0 Not Available [facility] (Lab) [address] [place], [address], 11/20/2024 12:26:27 11/20/19 25 11/20/2024 CBC/C OMPLE TE BLD COUNT W/DIF F mean RBC HGB concentratio n 33.0 g/dL 31.0-3 6.0 Not Available [facility] (Lab) [address] [place], [address], 11/20/2024 12:26:27 11/20/19 25 11/20/2024 CBC/C OMPLE TE BLD COUNT W/DIF F red cell distribution width 12.9 % 11.8-1 5.5 Not Available [facility] (Lab) [address] [place], [address], 11/20/2024 12:26:27 11/20/19 25 11/20/2024 CBC/C OMPLE TE BLD COUNT W/DIF F platelets 355 x10'3 /uL 150-40 0 Not Available [facility] (Lab) [address] [place], [address], 11/20/2024 12:26:27 11/20/19 25 11/20/2024 CBC/C OMPLE TE BLD COUNT W/DIF F mean platelet volume 9.6 fL 9.0-12 .4 Not Available [facility] (Lab) [address] [place], [address], 11/20/2024 12:26:27 11/20/19 25 11/20/2024 CBC/C OMPLE TE BLD COUNT W/DIF F neutrophils 59.5 % 39.0-7 2.0 Not Available [facility] (Lab) [address] [place], [address], 11/20/2024 12:26:27 11/20/19 25 11/20/2024 CBC/C OMPLE TE BLD COUNT W/DIF F lymphocytes 27.7 % 16.0-4 7.0 Not Available [facility] (Lab) [address] [place], [address], 11/20/2024 12:26:27 11/20/19 25 11/20/2024 CBC/C OMPLE TE BLD COUNT W/DIF F monocytes 8.4 % 5.0-12 .0 Not Available [facility] (Lab) [address] [place], [address], 11/20/2024 12:26:27 11/20/19 25 11/20/2024 CBC/C OMPLE TE BLD COUNT W/DIF F eosinophils 3.7 % 1.0-7. 0 Not Available [facility] (Lab) [address] [place], [address], 11/20/2024 12:26:27 11/20/19 25 11/20/2024 CBC/C OMPLE TE BLD COUNT W/DIF F basophils 0.3 % 0.0-2. 0 Not Available [facility] (Lab) [address] [place], [address], 11/20/2024 12:26:27 11/20/19 25 11/20/2024 CBC/C OMPLE TE BLD COUNT W/DIF F immature granulocytes 0.4 % 0.00-0 .50 Not Available [facility] (Lab) [address] [place], [address], 11/20/2024 12:26:27 11/20/19 25 11/20/2024 CBC/C OMPLE TE BLD COUNT W/DIF F neutrophils, absolute count 4.35 x10'3 /uL 1.5-8. 0 Not Available [facility] (Lab) [address] [place], [address], 11/20/2024 12:26:27 11/20/19 25 11/20/2024 CBC/C OMPLE TE BLD COUNT W/DIF F lymphocytes, absolute count 2.02 x10'3 /uL 1.07-3 .43 Not Available [facility] (Lab) [address] [place], [address], 11/20/2024 12:26:27 11/20/19 25 11/20/2024 CBC/C OMPLE TE BLD COUNT W/DIF F monocytes, absolute count 0.61 x10'3 /uL [id number]|2025-03-09 13:38:00|2025-03-09 13:38:00|XMS_ITS|RUDYG SAUL|External Medical Summaries|[id number]|" Clinical Summary Created on: March 09, 2025 HernandezMeryl lwo : 1945 Sex: Female Author Organization [facility] Address [address] [place] [address] Care Team Providers Care Actuary Clerk Name Role Phone Kelsey Kumar MD Primary Care Provider [phone] Social History Tobacco Use Types Packs/Day Years Used Date Smoking Tobacco: Never Assessed Comments Unknown Sex and Gender Information Value Date Recorded Sex Assigned at Not on file Legal Sex Female 5:08 PM CDT Gender Identity Not on file Sexual Orientation Not on file Plan of Treatment Health Maintenance Due Date Last Done Comments DTaP, Tdap and Td Vaccines (1 - Tdap) 1963 Zoster Vaccines (1 of 2) 1994 Annual Medicare Wellness Visit 2009 Dexa Scan (General) 2009 RSV Immunization or 60+ Years (1 - 1-dose 75+ series) 2019 COVID-19 Vaccine ( season) 2024 06/15/2021, 05/25/2021, 05/25/2021, Additional history exists Pneumococcal Vaccine: 50+ Years Completed 07/19/2019, 05/10/2018 Meningococcal B Vaccine Aged Out No l onger eligible based on patient's age to complete this topic Meningococcal Vaccine Aged Out No aggie troy eligible based on patient's age to complete this topic RSV Immunizations Under 20 Months Aged Out No longer eligible based on patient's age to complete this topic Insurance MEDICARE [facility] Care Teams Actuary Clerk Relationship Specialty Start Date End Date Kelsey Kumar MD PCP - General INTERNAL MEDICINE 01/11/24 "
--- OUTSIDE RECORDS SUMMARY | 2025-03-09 13:38 | XMS_ITS | Encounter Summary ---
Author Organization [facility] , [facility] Address [address] [facility] [place] [address] Phone Care Team Providers Care Tennis Court Attendant Name Role Phone Stacy Peoples MD Primary Care Provider [phone] Reason for Visit * Reason Comments Med Refill Encounter Details Date Type Department Care Team (Late st Contact Info) Description 12/01/2021 Refill [place] [employer] [facility], [facility] [address] [place] [address] 1 [place] [address] Nasir Abernathy DO [address] [facility] 1 [place] [address] Social History Tobacco Use Types Packs/Day Years Used Date Smoking Tobacco: Former Alcohol Use Standard Drinks/Week Comments No 0 (1 standard drink = 0.6 oz pur e alcohol) Comments Unknown Sex and Gender Information Value Date Recorded Sex Assigned at Not on file Legal Sex Female 2:52 PM EDT Gender Identity Not on file Sexual Orientation Not on file documented as of this encounter Plan of Treatment Upcoming Encounters Date Type Department Care Team (Late st Contact Info) Description 03/13/2025 3:15 PM CDT Office Visit [place] [employer], [facility] [address] [facility] [address] [place] [address] Nasir Abernathy DO [address] [facility] 1 [place] [address] documented as of this encounter Visit Diagnoses Not on filedocumented in this encounter Care Teams Tennis Court Attendant Relationship Specialty Start Date End Date Stacy Peoples MD [facility] [place] [id number] PCP - General Internal Medicine 07/04/24 documented as of this encounter
--- OUTSIDE RECORDS SUMMARY | 2025-03-09 13:39 | XMS_ITS | Referral Summary ---
Author Organization [facility] [address] [facility] [address] [place] [address] Care Team Providers Care Supervisor Pleating Name Role Phone Shelton Kumar MD Primary Care Provider Allergies No known active allergies Medications glimepiride (AMARYL) 2 mg tablet Take 1 tablet (2 mg total) by mouth 11/02/19 24 Active olmesartan (BENICAR) 40 mg tablet Take 1 tablet (40 mg total) by mouth daily 11/02/19 24 Active gabapentin (NEURONTIN) 300 mg capsule Take 2 capsules (600 mg total) by mouth 2 (two) times a day 11/25/19 24 Active amLODIPine (NORVASC) 10 mg tablet Take 1 tablet (10 mg total) by mouth daily 11/02/19 24 Active fenofibrate nanocrystallized (TRICOR) 145 mg tablet Take 1 tablet (145 mg total) by mouth daily 11/25/19 24 Active simvastatin (ZOCOR) 20 mg tablet Take 1 tablet (20 mg total) by mouth daily 11/29/19 24 Active TRESIBA 200 unit/mL (3 mL) pen for injection Inject 35 Units under the skin nightly 11/02/19 24 Active acetaminophen (TYLENOL) 500 mg tablet Take 1 tablet (500 mg total) by mouth every 6 (six) hours as needed for pain Active cholecalciferol (VITAMIN D-3) 1,000 unit Take 1 tablet/capsule (1,000 Units total) by mouth daily Active carvediloL (COREG) 12.5 mg tabletIndications:Hy pertension associated with diabetes (HCC) Take 1 tablet (12.5 mg total) by mouth 2 (two) times a day with meals 180 tablet 3 12/07/19 24 Active fluticasone propionate (FLONASE) 50 mcg/actuation nasal spray INSTILL 2 SPRAYS BY INTRANASAL ROUTE EVERY DAY Active Active Problems Problem Noted Date Diagnosed Date Nonrheumatic mitral valve regurgitation 02/01/20 24 Mild concentric left ventricular hypertrophy (LV H) 02/01/2024 Hyperlipidemia associated with type 2 diabetes m ellitus 12/07/2023 Hypertension associated with diabetes 12/07/2023 Resolved Problems Problem Noted Date Diagnosed Date Resolved Date Obesity (BMI 30.0-34.9) 12/07/2023 04/0 06/2024 Social History Tobacco Use Types Packs/Day Years Used Date Smoking Tobacco: Former Cigarettes 0.3 2 1 - 1979 Passive Smoke Exposure: Never Smokeless Tobacco: Never Tobacco Cessation:Counseling Given: Not Answered AUDIT-C Answer Date Recorded Q1: How often do you have a drink containing alcohol? Never 12/07/2023 Q2: How many drinks containi ng alcohol do you have on a typical day when you are drinking? Patient does not drink Q3: How often do you have si x or more drinks on one occasion? 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 Gender Identity Not on file Sexual Orientation Not on file Last Filed Vital Signs Vital Sign Reading Time Taken Comments Blood Pressure 152/60 08/03/2024 1:30 PM CDT Pulse 72 08/03/2024 1:30 PM CDT Temperature - - Respiratory Rate - - Oxygen Saturation 98% 08/03/2024 1:30 PM CDT Inhaled Oxygen Concentration - - Weight 78.9 kg (174 lb) 08/03/2024 1:30 PM CDT Height 162.6 cm (5' 4 ) 08/03/2024 1:30 PM CDT Body Mass Index 29.87 08/03/2024 1:30 PM CDT Plan of Treatment Not on file Insurance [facility] MEDICARE [facility] Care Teams Supervisor Pleating Relationship Specialty Start Date End Date Shelton Kumar MD PCP - General Internal Medicine 08/25/17
--- OUTSIDE RECORDS SUMMARY | 2025-03-09 13:39 | XMS_ITS | Clinical Summary ---
Author Organization [facility] Address [address] [place] [address] Care Team Providers Care Core Winder Machine Operator Name Role Phone Stacy Peoples MD Primary Care Provider [phone] Medications amLODIPine (NORVASC) 5 MG tablet Take 1 tablet (5 mg total) by mouth 1 (one) time each day 90 tablet 1 12/05/2024 Active chlorthalidone 25 MG tablet Take 1 tablet (25 mg total) by mouth 1 (one) time each day in the morning 90 tablet 1 12/05/2024 Active Semaglutide, 1 MG/DOSE, (Ozempic, 1 MG/DOSE,) 2 MG/1.5ML solution pen-injector Inject 1 mg under the skin per week 12 mL 1 01/03/2025 Active Tresiba FlexTouch 200 UNIT/ML injection Inject 10 Units under the skin 1 (one) time each day 3 mL 3 01/03/2025 Active Empagliflozin (Jardiance) 25 MG tablet Take 25 mg by mouth 1 (one) time each day in the morning 30 tablet 5 01/03/2025 Active Encounters Date Type Department Care Team Description 02/28/2025 Documentation Only [facility], [facility] [address] [address] Nasir Abernathy DO 02/27/2025 Documentation Only [facility], [facility] [address] [place] [address] [address] [place] [id number] Nasir Abernathy DO 01/03/2025 Refill [facility], [address] [place] [address] Gaye Hassan CMA 01/02/2025 4:45 PM CDT Office Visit [facility], [facility] [address] [facility] [address] [place] [address] Nasir Abernathy, Chronic kidney disease, stage 4 (severe) (HCC) (Primary Dx); Persistent proteinuria; Type 2 diabetes mellitus with diabetic chronic kidney disease (HCC); Hypertensive chronic kidney disease; Diastolic dysfunction; Hemochromatosis type 1 (HCC); Pure hypercholesterolemi a, not otherwise specified 12/28/2024 Documentation Only [facility], [address] [address] Nasir Abernathy DO 12/28/2024 Documentation Only [facility], [address] [address] Nasir Abernathy DO 12/11/2024 Documentation Only [facility], [address] [phone] Nasir Abernathy, 12/11/2024 Documentation Only [facility], [address] [address] Nasir Abernathy, from Last 3 Months Social History Tobacco Use Types Packs/Day Years [...] Sign Reading Time Taken Comments Blood Pressure 120/60 01/02/2025 4:28 PM CDT Pulse 72 01/02/2025 4:28 PM CDT Temperature 36.1 C (97 F) 01/02/2025 4:28 PM CDT Respiratory Rate 18 01/02/2025 4:28 PM CDT Oxygen Saturation 99% 01/02/2025 4:28 PM CDT Inhaled Oxygen Concentration - - Weight 78.5 kg (173 lb) 01/02/2025 4:28 PM CDT Height 162.6 cm (5' 4 ) 02/04/2021 12:00 PM CDT Body Mass Index 29.7 02/04/2021 12:00 PM CDT Plan of Treatment Upcoming Encounters Date Type Department Care Team (Late st Contact Info) Description 03/13/2025 3:15 PM CDT Office Visit [place] [facility], [facility] [address] [facility] [address] [place] [address] Nasir Abernathy DO [address] [facility] [address] [place] [address] Health Maintenance Due Date Last Done Comments Diabetes: Hemoglobin A1C 10/03/2024 Diabetes: Ophthalmology Exam 10/03/2024 Diabetes: Pedal Pulse Checked 10/03/2024 Diabetes: Sensory Foot Exam 10/03/2024 Diabetes: Visual Foot Exam 10/03/2024 Influenza Vaccine (Season Ended) 2025 08/23/2019, 08/02/2019, 08/31/2018, Additional history exists Pneumococcal Vaccine: 50+ Years Completed 07/19/2019, 05/10/2018 Hepatitis B Vaccine Aged Out No longe r eligible based on patient's age to complete this topic Insurance Medicare [facility] Care Teams Core Winder Machine Operator Relationship Specialty Start Date End Date Stacy Peoples MD [address] [place] [address] PCP - General Internal Medicine 07/04/24
--- OUTSIDE RECORDS SUMMARY | 2025-03-09 13:39 | XMS_ITS | Continuity of Care Document ---
Author Organization [facility] Address [address] [facility] [address] [place] [address] Phone Care Team Providers Care Veneer Puller Name Role Phone Benavides OD, Lennox Unavailable Unavailable Procedures Procedure Date Eye Exam Established Pt Refraction Eye Exam Established Pt Eye Exam Established Pt Eye Exam Established Pt Advance Directives Directive Yes / No Effective Date File Name No Information Encounters Encounter Description Practice Location Reason(s) For Visit Diagnoses Date Provider Providers Copied on Encounter [facility], [address] [place] [address] [address], [place], [place], [id number], [place] tel:[phone] [facility] No Information Dec-0 9-201 0 Benavides OD Lennox. [address] [facility] , [address], [place], [address], [place]. tel:[phone] [facility], [address] [place] [address] [address], [place], [place], [id number], [place] tel:[phone] [facility] No Information Nov- 5-201 0 Karla Neves. [address] [place], [address], [place]. tel:[phone] [facility], [address] [place] [address] [address], [place], [place], [id number], [place] tel:[phone] [facility] No Information Jul-0 9-200 8 Karla Neves. [address] [place], [address], [place]. tel:[phone] [facility], [address], [place], [place], [address], [place] tel:[phone] [facility] No Information 4-200 7 Karla Neves. [address] [place], [address], [place]. tel:[phone] Family History Family Member Type Diagnosis Age At Onset No Information Payers Payer name Insurance type Covered constitution party ID Authoriza tigenoveva(s) [place] [id number] [facility] [id number] Social History Type Description Quantity Date Captured Comments Sex Female Smoking Status No Information Chief Complaint And Reason For Visit No Information Reason For Referral Reason For Referral No Information History Of Present Illness Encounter Date Complaint History Of Prese nt Illness No Information Functional Status Date Functional Assessmen t No Information Instructions Date Instruction Additional Infor mation No Information Assessments Type Assessment Date No Information Patient Care Teams Name Effective Dates (start - stop) Status Members No Information
--- OUTSIDE RECORDS SUMMARY | 2025-03-09 13:39 | XMS_ITS | Clinical Summary ---
Author Organization [facility] [address] [facility] [address] [place] [address] Care Team Providers Care Filtering Machine Tender Name Role Phone Shelton Kumar MD Primary [...] Date Resolved Date Obesity (BMI 30.0-34.9) 12/07/2023 0406/2024 Surgical History Surgery Date Site/Laterality Comments CHOLECYSTECTOMY CATARACT EXTRACTION HYSTERECTOMY Medical History Medical History Date Comments Hypertension Hyperlipidemia Cataracts, bilateral Breast cancer (HCC) Family History Medical History Relation Name Comments Heart disease Mother Relation Name Status Comments Mother Social History Tobacco Use Types Packs/Day Years Used Date Smoking Tobacco: Former Cigarettes 0.3 2 1 978 - 1979 Passive Smoke Exposure: Never Smokeless [...] on file 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 Gender Identity Not on file Sexual Orientation Not on file Obstetrics History Last Filed Vital Signs Vital Sign Reading [...] 08/03/2024 1:30 PM CDT Plan of Treatment Health Maintenance Due Date Last Done Comments Albumin Creatinine Ratio, Urine 1945 Depression Screening 1945 Fall Risk Assessment 1945 Hemoglobin A1C 1945 eGFR 1945 Dilated Eye Exam 1945 Foot Exam 1945 Lipid Panel 1945 DTaP/Tdap/Td Vaccine (1 - Tdap) 1955 Hepatitis B Screening 1962 Zoster Vaccine (1 of 2) 1994 Well Visit 65+ 2009 Covid-19 Vaccine (4 - 2023-2 5 season) 2024 06/15/2021, 05/25/2021, 05/04/2021 Influenza Vaccine (#1) 2024 , 07/29/2021, 08/23/2019, Additional history exists Osteoporosis Screening-Bone Density Scan 09/11/2024 09/11/2022 Pneumococcal vaccine 65+ Completed 07/19/2019, 04/24 Insurance MEDICARE [facility] MEDICARE [employer] [place] Care Teams Filtering Machine Tender Relationship Specialty Start Date End Date Shelton Kumar MD PCP - General Internal Medicine 08/25/17
== END 2025-03-09 13:31 | disposition home or self-care (01) ==
PROVIDERS: PCP Internal Medicine; Visit Provider Nurse Practitioner Women's Health
DX: Z12.31 Encounter for screening mammogram for malignant neoplasm of breast (principal)
CPT/HCPCS: 77063; 77067